=== PATIENT | female | born 1955 | race Caucasian/White ===

== ENCOUNTER 2019-02-01 08:52 | Emergency (ER) | payer OTHER ==
[~2019-02-01] VITALS: Ht 170.2 cm; Wt 92.6 kg
[2019-02-01] MEDS ORDERED: ADENOSINE 6MG/2ML INJECTION (J0153) As Ordered ONE (09:11)
[2019-02-01] MEDS ORDERED: ADENOSINE 6MG/2ML INJECTION (J0153) IV STA (09:13)
[2019-02-01 09:27] LABS: BASO # 0.1 10^3/uL (0.0-0.2); BASO % 0.5 % (0.0-1.0); EOS # 0.1 10^3/uL (0.0-0.5); EOS % 0.8 % (0.0-3.0); HEMOGLOBIN 14.2 g/dl (12.0-15.5); LYMPH # 2.3 10^3/uL (1.5-5.0); LYMPH % 19.4 % (24.0-44.0); MEAN CORPUSCULAR HEMOGLOBIN 30.9 pg (27.0-33.0); MEAN CORPUSCULAR HGB CONC 32.3 g/dl (32.0-36.5); MEAN CORPUSCULAR VOLUME 95.9 fl (80.0-96.0); MONO # 0.8 10^3/uL (0.0-0.8); NEUTROPHILS # 8.5 10^3/uL (1.5-8.5); PLATELET COUNT, AUTOMATED 341 10^3/uL (150-450); RED BLOOD COUNT 4.59 10^6/uL (4.00-5.40); WHITE BLOOD COUNT 11.8 10^3/uL (4.0-10.0)
[2019-02-01] MEDS ORDERED: SIMV10TA21 PO (09:33)
[2019-02-01] MEDS ORDERED: CLAR10CA3 PO (09:33)
[2019-02-01] MEDS ORDERED: JANU100T PO (09:33)
[2019-02-01] MEDS ORDERED: SHIN50IN IM (09:33)
[2019-02-01] MEDS ORDERED: ASPI81CH33 PO (09:33)
[2019-02-01] MEDS ORDERED: CLOB0.0548 TOP (09:33)
[2019-02-01] MEDS ORDERED: GLUCTAB PO (09:33)
[2019-02-01] MEDS ORDERED: TRES1INJ2 SC (09:33)
[2019-02-01] MEDS ORDERED: LISI20TA20 PO (09:33)
--- NOTE | 2019-02-01 09:52 | REP ---
Portable chest x-ray: Single view. History: Chest pain. Palpitations. No comparison study. Findings: EKG monitoring electrodes and oxygen delivery tubing are seen. The lungs are well inflated and clear. The pleural angles are sharp. Heart size is normal. Thoracic aorta slightly tortuous. Pulmonary vasculature is not increased. No bony abnormality is appreciated. Impression: No active disease. Electronically Signed by Mark Bhardwaj MD 02/01/2019 09:43 A
[2019-02-01] MEDS ORDERED: NS 1,000 ML IV ONE (10:30)
[2019-02-01 10:40] LABS: BLOOD UREA NITROGEN 10 MG/DL (7-18); CALCIUM LEVEL 9.5 MG/DL (8.8-10.2); CARBON DIOXIDE LEVEL 26 MEQ/L (21-32); CHLORIDE LEVEL 104 MEQ/L (98-107); CPK CREATINE PHOSPHOKINASE 61 U/L (26-192); CREATININE FOR GFR 0.98 MG/DL (0.55-1.30); FREE THYROXINE INDEX 3.5 % (1.3-4.8); GLOMERULAR FILTRATION RATE > 60.0 (>45); GLUCOSE, FASTING 268 MG/DL (70-100); MAGNESIUM LEVEL 2.1 MG/DL (1.8-2.4); MB/CK RELATIVE INDEX 1.64 (< OR =4); POTASSIUM SERUM 4.1 MEQ/L (3.5-5.1); SODIUM LEVEL 140 MEQ/L (136-145); T UPTAKE 29 % (30-39); THYROXINE (T4) 12.1 UG/DL (4.5-12.0); TROPONIN I < 0.02 NG/ML (< 0.10)
[2019-02-01] MEDS ORDERED: METO1TAB7 PO (10:58)
[2019-02-01] MEDS ORDERED: METOPROLOL SUCC (TopROL XL) 50MG **XL** TAB PO ONE (11:00)
[2019-02-01 11:14] VITALS: BP 145/89
[2019-02-01 11:17] LABS: HEMOGLOBIN A1c 10.6 %
[2019-02-01 12:33] VITALS: BP 128/68
--- NOTE | 2019-02-01 19:23 | ECGEPIP ---
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
== END 2019-02-01 12:37 | disposition home or self-care (01) ==
LOC: M ED 08:52
DX: I47.1 Supraventricular tachycardia (principal); I10 Essential (primary) hypertension; E11.9 Type 2 diabetes mellitus without complications; Z82.49 Family history of ischemic heart disease and other diseases of the circulatory system; Z82.0 Family history of epilepsy and other diseases of the nervous system; Z79.899 Other long term (current) drug therapy; Z79.82 Long term (current) use of aspirin; Z79.4 Long term (current) use of insulin
CPT/HCPCS: 71045; 80048; 82550; 82553; 83036; 83735; 84436; 84443; 84479; 84484; 85025; 93005; 93041; 94760; 96374; 99285; J0153

== ENCOUNTER → 2025-02-12 | Outpatient (CLI) | payer MEDICARE, OTHER ==
[~2025-02-12] MED LIST: ASPI81CH33 PO; CLAR10CA3 PO; CLOB0.0548 TOP; GLUCTAB PO; JANU100T PO; LISI20TA37 PO; METO1TAB7 PO; SHIN50IN IM; SIMV10TA21 PO; TRES1INJ2 SC
== END ==
LOC: M RAD 13:29
PROVIDERS: ATTEND Internal Medicine
DX: I73.9 Peripheral vascular disease, unspecified (principal); E11.9 Type 2 diabetes mellitus without complications